=== PATIENT | female | born 1985 | race Caucasian/White ===

== ENCOUNTER 2017-04-16 18:14 | Emergency (ER) | payer OTHER ==
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
[2017-04-16 18:38] VITALS: RESP 18; O2SAT 96
[2017-04-16] MEDS ORDERED: ONDANSETRON 4 MG/2 ML VIAL IVP ONE ×2 (19:33→20:47)
[2017-04-16] MEDS ORDERED: KETOROLAC 15 MG/1 ML SDV IVP ONE (19:50)
[2017-04-16] MEDS ORDERED: NS 1,000 ML IV ONE (20:02)
[2017-04-16] MEDS ORDERED: HYDROCOD/APAP 5/325 PREPACK#6 BTL TAKEHOME ONE (20:13)
[2017-04-16] MEDS ORDERED: ONDANSETRON 4MG PREPACK#2 BTL TAKEHOME ONE (20:17)
[2017-04-16 22:03] VITALS: BP 123/67; PULSE 82; TEMP 98.1
== END 2017-04-16 21:55 | disposition home or self-care (01) ==
LOC: EDUNIT#
DX: S02.2XXA Fracture of nasal bones, initial encounter for closed fracture (principal); S02.401A Maxillary fracture, unspecified side, initial encounter for closed fracture; S03.2XXA Dislocation of tooth, initial encounter; E86.9 Volume depletion, unspecified; V11.0XXA Pedal cycle driver injured in collision with other pedal cycle in nontraffic accident, initial encounter; Y92.89 Other specified places as the place of occurrence of the external cause; Y99.8 Other external cause status; Y93.23 Activity, snow (alpine) (downhill) skiing, snowboarding, sledding, tobogganing and snow tubing
CPT/HCPCS: 96374; J1885; J2405